=== PATIENT | male | born 1995 | race Caucasian/White ===

== ENCOUNTER → 2017-11-15 13:01 | Outpatient (CLI) | payer OTHER, SELFPAY ==
--- NOTE | 2017-11-15 13:30 | SP.MBSS_ITS ---
PRIMARY / SECONDARY DIAGNOSIS: dysphagia (R13.10) REFERRING PHYSICIAN: Dr. Newton Ly MD CURRENT DIET: regular textures, thin liquids DENTITION: WFL MENTAL STATUS: WNL RESPIRATORY STATUS: O2 via room air PREVIOUS MODIFIED BARIUM SWALLOW STUDY: none REASON FOR REFERRAL: Patient is a 22 year old male referred for a modified barium swallow (MBS) study to objectively assess the Patients oropharyngeal swallow function under fluoroscopy secondary to reported sticking sensation below the laryngeal notch post deglutition (globus sensation) in addition to rather frequent emesis, occurring quickly particularly during intake in public. Symptoms have appeared approximately 6 months prior, with gradual increase in severity. Patient denies any odynophagia, denies weight loss, and denies any overt signs and symptoms of aspiration. Patient reports management of gastroesophageal reflux via proton pump inhibitors. MEDICAL HISTORY: Gastroesophageal reflux disease. STUDY FINDINGS: Patient participated in a Modified Barium Swallow (MBS) study on 11/15/2017. Dr. Aquino was the radiologist present for this evaluation. This study was recorded in the lateral view and images were sent to PACs for storage. The following consistencies were presented to this patient for analysis of oropharyngeal swallow function: thin liquids, with trials terminated following prolonged bout of emesis. Results of the MBS are as follows: PENETRATION / ASPIRATION SCALE (YOON): 1 = does not enter airway 2 = enters airway/above vocal folds/ejected 3 = enters airway/above vocal folds/not ejected 4 = enters airway/contacts vocal folds/ejected 5 = enters airway/contacts vocal folds/not ejected 6 = enters airway/below vocal folds/ejected 7 = enters airway/below vocal folds/not ejected despite effort 8 = enters airway/below vocal folds/no effort PENETRATION / ASPIRATION SCALE (SCORE): Thin liquids via cup (single sip): 1 Thin liquids via cup (single sip): 1 Thin liquids via cup (single sip): 1 * trials terminated due to prolonged bout of emesis. IMPRESSION: DIAGNOSIS: oropharyngeal swallow function grossly within normal limits ORAL PHASE CHARACTERIZED BY: LABIAL SEAL: no labial escape TONGUE CONTROL DURING BOLUS MANIPULATION: cohesive bolus between tongue to palatal seal BOLUS PREPARATION / MASTICATION: timely and efficient chewing and mashing BOLUS TRANSPORT / LINGUAL MOTION: brisk tongue motion ORAL RESIDUE: trace residue lining oral structures PHARYNGEAL PHASE CHARACTERIZED BY: INITIATION OF PHARYNGEAL SWALLOW: bolus head in valleculae at first hyoid excursion SOFT PALATE ELEVATION: no bolus between soft palate and pharyngeal wall LARYNGEAL ELEVATION: complete superior movement of thyroid cartilage with complete approximation of arytenoids cartilage to epiglottic petiole ANTERIOR HYOID EXCURSION: complete anterior movement EPIGLOTTIC MOVEMENT: complete epiglottic inversion LARYNGEAL VESTIBULE CLOSURE AT HEIGHT OF SWALLOW: complete laryngeal vestibule closure with no air/contrast in laryngeal vestibule PHARYNGEAL STRIPPING WAVE: pharyngeal stripping wave present / complete PHARYNGOESOPHAGEAL SEGMENT OPENING: complete distension and complete duration with no obstruction of flow TONGUE BASE RETRACTION: no contrast between tongue base and posterior pharyngeal wall PHARYNGEAL RESIDUE: trace residue within or on pharyngeal structures ESOPHAGEAL PHASE CHARACTERIZED BY: ESOPHAGEAL BOLUS CLEARANCE IN THE UPRIGHT POSITION: complete clearance; esophageal coating DIET TEXTURE RECOMMENDATIONS: Will recommend a regular textured, thin liquid diet. INTERPRETATION OF RESULTS: The Patient presents with oropharyngeal and pharyngoesophageal swallow functioning grossly within normal limits. No clinically significant findings throughout the study. No aspiration appreciated throughout consistencies trialed. Trials prematurely terminated after the Patient reported rather quick onset of nausea proceeded by prolonged bout of emesis lasting approximately 3-5 minutes in duration. RECOMMENDATIONS: Would consider additional assessment of the Patients gastroesophageal functioning via equipment man based on reported symptoms, absence of oropharyngeal and pharyngoesophageal dysfunction, and very quick and prolonged bout of emesis immediately following limited trials. No further skilled speech- language services warranted at this time targeting dysphagia. ADDITIONAL COMMENTS/RECOMMENDATIONS: Results and recommendations were discussed with the Patient immediately following MBS completion, with the Patient verbalizing understanding and agreement with all recommendations and education provided. IMAGE COUNT: 232 G-CODES: SWALLOWING [id number] Current Status: SWALLOWING G8997 Goal Status: SWALLOWING G8998 Discharge Status:
--- NOTE | 2017-11-15 13:30 | RAD_ITS ---
STUDY: SWALLOWING STUDY REASON FOR EXAM: Male, 22 years old. Vomiting. TECHNIQUE: The examination was performed with Speech Pathology in attendance. Under fluoroscopic observation, the patient ingested thin barium, thick barium, barium pudding, and barium coated cracker. FLUOROSCOPY TIME: 0:25 minutes/seconds. 232 spot images were obtained. RADIOLOGIST INVOLVEMENT: Radiologist was present and providing direct supervision. COMPARISON: None. FINDINGS: The following was observed during swallowing of the various mixtures of barium: Thin Barium: There was no evidence of aspiration or laryngeal penetration. The patient refused to ingest other textures. RAD/Swallowing Function w/Video IMPRESSION: Normal tailored barium swallow study. No evidence of increased risk for aspiration. The swallow study findings were discussed with the patient by the speech pathologist at the conclusion of the examination. Please see speech pathology report for more information and recommendations. Electronically Signed: Pancho Aquino MD at 8:10 EDT Tel [phone], Service support ,
== END ==
PROVIDERS: Family Provider Family Medicine; PCP Family Medicine; Visit Provider Family Medicine
DX: R13.10 Dysphagia, unspecified (principal)
CPT/HCPCS: 74230; 92611